=== PATIENT | male | born 1980 | race Caucasian/White ===

== ENCOUNTER 2017-04-03 21:39 | Emergency (ER) | payer SELFPAY ==
[~2017-04-03] VITALS: Ht 167.6 cm; Wt 81.0 kg
[2017-04-03 21:43] VITALS: Ht 167.6 cm; Wt 81.0 kg
[2017-04-03] MEDS ORDERED: KETOROLAC 60 MG INJ IM STA (22:39)
[2017-04-03] MEDS ORDERED: HYDR-906 PO (22:47)
[2017-04-03] MEDS ORDERED: IBUP-1542 PO (22:47)
[2017-04-03] MEDS ORDERED: CYCL-319 PO (22:47)
--- NOTE | 2017-04-03 22:59 | ERD ---
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 Patient will cover the pain. Patient describes the pain as throbbing pain, 6/10 scale, as was upon movement accompanied with muscle spasms. Patient did not take any medications to help with symptoms. Patient denies any direct trauma in affected area. Patient denies any numbness or tingling. ROS All systems reviewed and are negative except as per history of present illness. Medications Home Meds Active Scripts Cyclobenzaprine Hcl* (Cyclobenzaprine Hcl*) 10 Mg Tablet, 10 MG PO TID, #15 TAB Prov:DAMARI MORALES [employer] 04/03/17 Hydrocodone/Acetaminophen ([place] 5-325 Tablet) 1 Each Tablet, 1 TAB PO Q6H Y for SEVERE PAIN LEVEL 7-10, #20 TAB Prov:DAMARI MORALES NP 04/03/17 Ibuprofen* (Motrin*) 600 Mg Tab, 600 MG PO Q6H Y for PAIN AND OR ELEVATED TEMP, #30 TAB Prov:DAMARI MORALES NP 04/03/17 Allergies Allergies: Coded Allergies: No Known Allergy (Unverified , 04/03/17) PMhx/Soc Medical and Surgical Hx: pt denies Medical Hx, pt denies Surgical Hx History of Surgery: No Anesthesia Reaction: No Hx Neurological Disorder: No Hx Respiratory Disorders: No Hx Cardiac Disorders: No Hx Psychiatric Problems: No Hx Miscellaneous Medical Probl: No Hx Alcohol Use: No Hx Substance Use: No Hx Tobacco Use: No Smoking Status: Never smoker FmHx Family History: No coronary disease, No diabetes, No other Physical Exam Vitals Vital Signs Date Time Temp Pulse Resp B/P Pulse Ox O2 Delivery O2 Flow Rate FiO2 04/03/17 21:43 98.6 69 18 129/76 98 Physical Exam GENERAL: The patient is well developed and appropriate for usual state of health, in no apparent distress. CHEST: Clear to auscultation bilaterally. There are no rales, wheezes or rhonchi. HEART: Regular rate and rhythm. No murmurs, clicks, rubs or gallops. No S3 or S4. ABDOMEN: Soft, nontender and nondistended. Good bowel sounds. No rebound or guarding. No gross peritonitis. No gross organomegaly or masses. No Mackey sign or McBurney point tenderness. BACK: No midline or flank tenderness. Muscle spasms noted in the left paraspinal aspect of the cervical spine. Patient is able to do full range of motion without any restriction. EXTREMITIES: Equal pulses bilaterally. There is no peripheral clubbing, cyanosis or edema. No focal swelling or erythema. Full range of motion. Grossly neurovascularly intact. NEURO: Alert and oriented. Cranial nerves 2-12 intact. Motor strength in all 4 extremities with 5/5 strength. Sensation grossly intact. Normal speech and gait. SKIN: There is no apparent rash or petechia. The skin is warm and dry. HEMATOLOGIC AND LYMPHATIC: There is no evidence of excessive bruising or lymphedema. No gross cervical, axillary, or inguinal lymphadenopathy. Results 24 hrs Current Medications Medications (Trade) Dose Ordered Sig/Miranda Route PRN Reason Start Time Stop Time Status Last Admin Dose Admin Ketorolac Tromethamine (Toradol) 60 mg ONCE STAT IM 04/03/17 22:39 04/03/17 22:40 DC 04/03/17 22:54 Patient was given medication for pain here in emergency department, after treatment, patient verbalized feeling much better. Patient's pain is improved. Procedures/MDM Medical Decision Making: Patient's pain is most likely consistent with a neck strain. There is no suspicion for neurovascular compromise. Patient has intact sensation and circulation of the affected extremity and distal extremities. No incontinence, no suspicion for any acute bacterial infection.There is low suspicion for septic arthritis. Did not have any trauma in affected area. Patient does not have any fever. No symptoms of any aortic dissection or aortic aneurysm. Radiology exam not indicated at this time. Disposition: Home. Patient is given prescription for ibuprofen for mild to moderate pain, [place] for severe pain, Flexeril for muscle spasm. Patient was advised to avoid heavy lifting , apply warm compresses on affected area. Patient was advised that if symptoms are worse, numbness, tingling, high fever, unable to move joint, worsening symptoms, to return to emergency department immediately. Otherwise, patient is advised to follow up with the primary care doctor in 5-7 days for reevaluation of symptoms. Disclaimer: Inadvertent spelling and grammatical errors are likely due to EHR/ dictation software use and do not reflect on the overall quality of patient care. Also, please note that the electronic time recorded on this note does not necessarily reflect the actual time of the patient encounter. Departure Diagnosis: Primary Impression: Neck strain Encounter type: initial encounter Qualified Code: S16.1XXA - Strain of neck muscle, initial encounter Condition: Stable Patient Instructions: Neck Sprain/Strain DAMARI MORALES NP Apr 03, 2017 22:58
[2017-04-03 23:00] VITALS: BP 169/111; RESP 18; TEMP 98.6
== END 2017-04-03 23:02 | disposition home or self-care (01) ==
LOC: FTE 21:39
DX: S16.1XXA Strain of muscle, fascia and tendon at neck level, initial encounter (principal); X58.XXXA Exposure to other specified factors, initial encounter; Y92.511 Restaurant or cafe as the place of occurrence of the external cause
CPT/HCPCS: 96372; 99284; J1885